=== PATIENT | female | born 1980 | race African-American/Black ===

== ENCOUNTER 2019-07-01 19:23 | Inpatient (IN) | payer MEDICAID ==
[~2019-07-01] VITALS: Ht 152.4 cm; Wt 117.1 kg
[2019-07-01] MEDS ORDERED: CELEXA40 MG PO (22:34)
[2019-07-01] MEDS ORDERED: XANAX1 MG PO (22:34)
[2019-07-01] MEDS ORDERED: NEURONTIN800 MG PO (22:35)
[2019-07-01] MEDS ORDERED: HYDROCODONE-A1 UDTA2 PO (22:36)
[2019-07-01] MEDS ORDERED: LOPRESSOR25 MG PO (22:36)
[2019-07-01] MEDS ORDERED: TEMAZEPAM30 MG PO (22:40)
[2019-07-01] MEDS ORDERED: CYCLOBENZAPRINE5 MG PO (22:42)
[2019-07-01] MEDS ORDERED: PHENERGAN6.25 MG/5 PO (22:45)
[2019-07-01 23:58] VITALS: BP 152/91
[2019-07-02 00:08] VITALS: BP 152/91; Ht 152.4 cm; Wt 117.1 kg
--- NOTE | 2019-07-02 01:08 | NUR ---
I have reviewed this patient and I concur with the Shift Assessment completed by the Licensed Practical Nurse today this shift.
--- NOTE | 2019-07-02 02:30 | NUR ---
ADMISSION ASSESSMENT COMPLETED. PT RESTING IN BED. NO DISTRESS. SR PER TELEM
[2019-07-02 05:34] LABS: BASOPHILS 0.1 % (0-2); EOSINOPHILS 0.9 % (0-7); HEMATOCRIT 35.5 % (36.0-48.0); HEMOGLOBIN 10.8 g/dL (12-16); IMMATURE GRANULOCYTES 0.5 % (0-5); LYMPHOCYTES 28.1 % (15-50); MCH 24.4 pg (26.0-34.0); MCHC 30.4 g/dL (31.0-37.0); MCV 80.3 fL (80.0-100.0); MEAN PLATELET VOLUME 9.1 fL (7.4-10.4); MONOCYTES 7.5 % (2-11); NEUTROPHILS 62.9 % (40-80); PLATELET COUNT 375 10x3/uL (130-400); RBC 4.42 10x6/uL (4.00-5.40); RDW 17.7 % (11.5-14.5); WBC 17.5 10x3/uL (4.8-10.8)
[2019-07-02 06:00] LABS: ANION GAP 9.7 mmol/L (8-16); CALCIUM 8.8 mg/dL (8.5-10.1); CARBON DIOXIDE 31.1 mmol/L (21.0-32.0); CREATININE - SERUM 0.9 mg/dL (0.6-1.3); MAGNESIUM - SERUM 1.8 mg/dL (1.8-2.4); PHOSPHOROUS 2.9 mg/dL (2.5-4.9); POTASSIUM - SERUM 3.8 mmol/L (3.5-5.1)
[2019-07-02 08:00] VITALS: BP 151/88
[2019-07-02 11:29] LABS: % SATURATION 7 % (15-55); IRON 30 ug/dl (35-150); TOTAL IRON BIND CAPACITY 398 ug/dl (260-445); UNSAT IRON BIND CAPACITY 368 ug/dl (150-375)
[2019-07-02 12:05] LABS: FERRITIN 46 ng/mL (3-244); PRO BNP 33 pg/mL (0-125)
[2019-07-02 14:40] LABS: APPEARANCE CLEAR (CLEAR); BILIRUBIN NEGATIVE (NEGATIVE); COLOR YELLOW (YELLOW); GLUCOSE NEGATIVE (NEGATIVE); KETONE NEGATIVE (NEGATIVE); NITRITE NEGATIVE (NEGATIVE); PROTEIN TRACE mg/dL (NEGATIVE); UROBILINOGEN NORMAL (NORMAL)
--- NOTE | 2019-07-02 14:40 | NUR ---
PATIENT IS AWAKE AND SITTING UP IN BED WITH FAMILY IN THE ROOM. SHE DENIES ANY NEEDS AT THIS TIME.
[2019-07-02 14:42] LABS: BACTERIA FEW /hpf (NEGATIVE); EPITHELIAL CELLS 0-5 /hpf (0-5); RED CELLS - URINE OCC /hpf (0-5)
[2019-07-02 14:44] LABS: YEAST >1+ /hpf (NONE SEEN)
[2019-07-02 14:51] LABS: UDS - AMPHET NEGATIVE QUAL (NEGATIVE); UDS - BARB NEGATIVE QUAL (NEGATIVE); UDS - BENZO POSITIVE QUAL (NEGATIVE); UDS - COCAINE NEGATIVE QUAL (NEGATIVE); UDS - OPIATE POSITIVE QUAL (NEGATIVE); UDS - PCP NEGATIVE QUAL (NEGATIVE); UDS - THC NEGATIVE QUAL (NEGATIVE)
[2019-07-02 16:00] VITALS: BP 148/86
[2019-07-02 20:35] VITALS: BP 124/80
--- NOTE | 2019-07-02 23:22 | NUR ---
ASSESSMENT COMPLETED AT 191 HRS. PT RESTING WITH EYES CLOSED. RESP EVEN AND REGULAR. ATTEMPTED TO HANG IVAB AT 1935 HRS. IV OCCLUDED. IV DC'D WITH CATHETER INTACT. ASSESSMENT COMPLETED AT 1999 HRS. VSS. ALERT AND ORIENTED TO PERSON, PLACE AND TIME. STERN. LUNGS DIMINISHED IN BASES BILAT. PT UP AD HITESH. NEW IV STARTED TO RAC #22 WITH ATTEMPS X3. PT TOLERATED ACTIVITY WELL. MAXIPIME 2GR IVPB INITIATED AT 2037 HRS. PM MEDS GIVEN. PT CURRENTLY RESTING WITH EYES CLOSED. RESP EVEN AND REGULAR. SR UP X2,CALL LIGHT WITHIN REACH.
[2019-07-02 23:52] VITALS: BP 131/79
--- NOTE | 2019-07-03 00:36 | NUR ---
PT AWAKE; DENIES ANY DISCOMFORT. CALL LIGHT WITHIN REACH.
--- NOTE | 2019-07-03 02:25 | NUR ---
PT RESTING WITH EYES CLOSED. RESP EVEN AND REGULAR. SR UP X2,CALL LIGHT WITHIN REACH.
[2019-07-03 04:02] VITALS: BP 135/79
--- NOTE | 2019-07-03 04:20 | NUR ---
PT AWAKE; DENIES ANY DISCOMFORT. CALL LIGHT WITHN REACH.
[2019-07-03 04:56] LABS: BASOPHILS 0.1 % (0-2); EOSINOPHILS 0.3 % (0-7); HEMATOCRIT 38.1 % (36.0-48.0); HEMOGLOBIN 11.6 g/dL (12-16); IMMATURE GRANULOCYTES 0.4 % (0-5); LYMPHOCYTES 17.5 % (15-50); MCH 24.6 pg (26.0-34.0); MCHC 30.4 g/dL (31.0-37.0); MCV 80.9 fL (80.0-100.0); MEAN PLATELET VOLUME 9.2 fL (7.4-10.4); MONOCYTES 2.5 % (2-11); NEUTROPHILS 79.2 % (40-80); PLATELET COUNT 387 10x3/uL (130-400); RBC 4.71 10x6/uL (4.00-5.40); RDW 17.8 % (11.5-14.5); WBC 13.6 10x3/uL (4.8-10.8)
[2019-07-03 05:09] LABS: CALC OSMOLALITY 276 mosm/kg (275-300); CALCIUM 8.8 mg/dL (8.5-10.1); CARBON DIOXIDE 28.8 mmol/L (21.0-32.0); CHLORIDE - SERUM 102 mmol/L (98-107); CREATININE - SERUM 0.8 mg/dL (0.6-1.3); GLUCOSE 126 mg/dL (74-106); MAGNESIUM - SERUM 1.7 mg/dL (1.8-2.4); PHOSPHOROUS 3.5 mg/dL (2.5-4.9); SODIUM 137 mmol/L (136-145); UREA NITROGEN 16 mg/dL (7-18); eGFR NON AFRICAN AMERICAN 84 mL/min (90-120)
[2019-07-03 05:12] LABS: POTASSIUM - SERUM 4.7 mmol/L (3.5-5.1)
--- NOTE | 2019-07-03 07:17 | NUR ---
VSS THROUGHOUT NIGHT. PT RESTED WELL DURING SHIFT. NEEDS MET; WILL CONTINUE TO MONITOR.
[2019-07-03 08:47] VITALS: BP 141/89
[2019-07-03 13:04] VITALS: BP 140/85
--- NOTE | 2019-07-03 19:35 | NUR ---
INITIAL ROUNDS COMPLETED. PT DENIES ANY DISCOMFORT. CALL LIGHT WITHIN REACH.
[2019-07-03 20:32] VITALS: BP 128/76
--- NOTE | 2019-07-03 22:39 | NUR ---
ASSESSMENT COMPLETED AT 1920 HRS. PT DENIED ANY DISCOMFORT. VSS. ALERT AND ORIENTED TO PERSON, PLACE AND TIME. STERN. IV TO UPPER R ARM SL. LUNGS DIMINISHED IN BASES BILAT. PM MEDS GIVEN. PT CURRENTLY RESTING WITH EYES CLOSED. RESP EVEN AND REGULAR. SR UP X2, CALL LIGHT WITHIN REACH.
[2019-07-03 23:51] VITALS: BP 142/79
--- NOTE | 2019-07-04 00:06 | NUR ---
PT AWAKE; DENIES ANY DISCOMFORT. CALL LIGHT WITHIN REACH.
--- NOTE | 2019-07-04 02:10 | NUR ---
PT RESTING WITH EYES CLOSED. RESP EVEN AND REGULAR. SR UP X2, CALL LIGHT WITHIN REACH.
--- NOTE | 2019-07-04 04:21 | NUR ---
PT RESTING WITH EYES CLOSED. RESP EVEN AND REGULAR. SR UP X1, CALL LIGHT WITHIN REACH.
[2019-07-04 04:30] VITALS: BP 159/87
[2019-07-04 06:11] LABS: HEMOGLOBIN 11.3 g/dL (12-16); MCH 24.2 pg (26.0-34.0); MCHC 30.5 g/dL (31.0-37.0); MCV 79.4 fL (80.0-100.0); MEAN PLATELET VOLUME 9.3 fL (7.4-10.4); PLATELET COUNT 410 10x3/uL (130-400); RBC 4.66 10x6/uL (4.00-5.40); RDW 17.7 % (11.5-14.5); WBC 23.7 10x3/uL (4.8-10.8)
[2019-07-04 06:28] LABS: EOSINOPHILS 1 % (0-7); LYMPHOCYTES 12 % (15-50); MONOCYTES 7 % (2-11); NEUTROPHILS 80 % (40-80); PLATELET ESTIMATE INCREASED
[2019-07-04 06:47] LABS: CALCIUM 8.5 mg/dL (8.5-10.1); CARBON DIOXIDE 26.5 mmol/L (21.0-32.0); CHLORIDE - SERUM 101 mmol/L (98-107); CREATININE - SERUM 0.8 mg/dL (0.6-1.3); MAGNESIUM - SERUM 1.9 mg/dL (1.8-2.4); POTASSIUM - SERUM 4.4 mmol/L (3.5-5.1); SODIUM 139 mmol/L (136-145); eGFR NON AFRICAN AMERICAN 84 mL/min (90-120)
--- NOTE | 2019-07-04 06:48 | NUR ---
VSS THROUGHOUT NIGHT. PT STATED XANAX AND NORCO HELPED HER SLEEP. NEEDS MET; WILL CONTINUE TO MONITOR.
[2019-07-04 06:51] LABS: CALC OSMOLALITY 287 mosm/kg (275-300); GLUCOSE 216 mg/dL (74-106); UREA NITROGEN 22 mg/dL (7-18)
[2019-07-04 09:13] VITALS: BP 152/80
--- NOTE | 2019-07-04 09:48 | NUR ---
PATIENT PIV IS NO LONGING WORKING. IT IS PAINFUL AND APPEARS TO HAVE DISLODGED. IT IS IN HER RIGHT, INNER, UPPER ARM. SHE HAS HAD IV'S IN HER HANDS, AND DOES NOT KEEP IV'S. SHE JUST HAD THIS IV PLACED YESTERDAY. REMOVING NOW WITH CATHETER INTACT. WILL LOOK FOR ANOTHER SITE. DR MORSE SAID THAT WE SHOULD GET A MIDLINE PLACED. WILL PUT IN AN ORDER FOR VASCULAR ACCESS NURSE, IF HE HAS NOT DONE SO ALREADY.
--- NOTE | 2019-07-04 10:37 | NUR ---
UNABLE TO START IV, ATTEMPTED, AND FAILED IN RIGHT UPPER ARM.
--- NOTE | 2019-07-04 12:07 | NUR ---
CALLED VASCULAR ACCESS NURSE, SHE WILL COME DO THE MIDLINE SOON SHE IS DONE WITH HER CURRENT PATIENT.
[2019-07-04 12:17] VITALS: BP 143/77
--- NOTE | 2019-07-04 12:32 | NUR ---
NUTRITION CONSULT PROVIDED PT WITH CONSISTENT CARB DIET INFORMATION. ALSO PROVIDED PLATE METHOD GUIDELINES. ENCOURAGED PT TO LIMIT CARBS TO ~ 3 CHOICES PER MEAL. PT VOICED UNDERSTANDING. RD FOLLOWING
--- NOTE | 2019-07-04 13:45 | NUR ---
MIDLINE PLACED IN LEFT UPPER ARM BY VASCULAR ACCESS NURSE. PATIENT TOLERATED.
[2019-07-04 17:24] VITALS: BP 128/66
--- NOTE | 2019-07-04 17:27 | MORECARE ---
CASE MANAGEMENT DISCHARGE SUMMARY PATIENT: JAYSON FLORES UNIT: [id number] ADM DATE: 07/01/19 AGE: 38 : 78 SEX: F ROOM/BED: D.7070 AUTHOR: MARINA,DOC PHYSICIAN: REFERRING PHYSICIAN: LESLY SHELBY MD DATE OF SERVICE: 07/04/19 Discharge Plan Patient Name: JAYSON FLORES Facility: [facility]:[place] : 1980 Planned Disposition: Home Anticipated Discharge Date: Discharge Date: Expected LOS: Initial Reviewer: [id number] Initial Review Date: 07/04/2019 Generated: 07/04/19 6:27 pm Comments DCP- Discharge Planning Updated by [id number]: Ynes Bond on 07/04/19 4:[address] Patient Name: JAYSON LFORES Admission Status: Elective Accout number: [id number] Admission Date: 07-01-2019 : 1980 Admission Diagnosis: Attending: LESLY SHELBY Current LOS: 3 Anticipated DC Date: Planned Disposition: Home Primary Insurance: MEDICAID [place] Discharge Planning Comments: CM MET WITH PATIENT AFTER OBTAINING VERBAL CONSENT. STATES PLANS TO DISCHARGE TO HOME. DISCUSSED NEED FOR HH, REHAB OR EQUIPMENT, PATIENT STATES NO NEEDS. MAY NEED WALK TEST, EDMUND SIGNED FOR [facility]. CM WILL FOLLOW AND ASSIST NEEDED. Trimmer Helper: Ynes Bond DCPIA - Discharge Planning Initial Assessment Updated by [email or web address]: Ynes Bond on 07/04/19 5:16 pm * Is the patient Alert and Oriented? Yes * PCP DAYDAY * Pharmacy [facility] * Preadmission Environment Home with Family * ADLs Independent * Equipment Nebulizer * List name and contact numbers for known caregivers / representatives who currently or will assist patient after discharge: LAMBERTOIKA, DAUGHTER, * Additional services required to return to the preadmission environment? No * Can the patient safely return to the preadmission environment? Yes * Has this patient been hospitalized within the prior 30 days at any hospital? No Coverage Notice Reviewer: [email or web address] Juan Manuel Bond Notice Issued Date-Time: 07/04/2019 17:17 Notice Type: Patient Choice Letter Notice Delivered To: Patient Relationship to Patient: Php Lamp Developer Name: Delivery Method: HAND - Hand Delivered Eleni Days: Prior Verbal Notification: Recipient Understood Notice: Yes Recipient Signature: Yes Med Rec Note Co-signed by Attending: Coverage Notice Comment: [facility] Patient Name: JAYSON FLORES Page [phone] at 1727 All edits/amendments must be made on the electronic document DICTATION DATE: 07/04/191726 DRIER FEEDER: YANET 07/04/191726 RPT#: [id number] DC DATE: STATUS: ADM IN [facility] [address] [place] [address] END OF REPORT
--- NOTE | 2019-07-04 19:30 | NUR ---
PT A/OX4, LUNGS CLEAR, LEFT MIDLINE INTACT WITH ABX INFUSING, PSORIASIS NOTED TO BILAT ARMS, WATCHING TV WITH NO C/O
[2019-07-04 20:00] VITALS: BP 138/96
[2019-07-05] VITALS: BP 135/83
[2019-07-05 04:00] VITALS: BP 122/80
[2019-07-05 05:48] LABS: BASOPHILS 0.2 % (0-2); EOSINOPHILS 2.1 % (0-7); HEMATOCRIT 38.8 % (36.0-48.0); IMMATURE GRANULOCYTES 0.4 % (0-5); LYMPHOCYTES 22.8 % (15-50); MCH 24.5 pg (26.0-34.0); MCHC 30.9 g/dL (31.0-37.0); MCV 79.3 fL (80.0-100.0); MONOCYTES 6.5 % (2-11); PLATELET COUNT 346 10x3/uL (130-400); RBC 4.89 10x6/uL (4.00-5.40); WBC 17.8 10x3/uL (4.8-10.8)
[2019-07-05 06:06] LABS: ANION GAP 11.5 mmol/L (8-16); CALCIUM 8.6 mg/dL (8.5-10.1); CARBON DIOXIDE 28.8 mmol/L (21.0-32.0); MAGNESIUM - SERUM 1.8 mg/dL (1.8-2.4); POTASSIUM - SERUM 4.3 mmol/L (3.5-5.1)
--- NOTE | 2019-07-05 08:28 | NUR ---
ALERT AND ORIENTED. DENIES ANY NEEDS. ON ROOM AIR. MID LINE TO LEFT UPPER ARM. UP AB HITESH. PSORISES TO BITH FOREARM. SR UP WITH CALL LIGHT IN REACH WILL MONITOR
[2019-07-05 09:29] VITALS: BP 138/83
[2019-07-05 12:13] VITALS: BP 137/72
--- NOTE | 2019-07-05 15:52 | NUR ---
I have reviewed this patient and I concur with the Shift Assessment completed by the Licensed Practical Nurse today this shift.
[2019-07-05 16:46] VITALS: BP 141/81
--- NOTE | 2019-07-05 18:16 | NUR ---
UP IN HALLWAY WALKING. GAIT STEADY. DENIES ANY NEEDS. CALL LIGHT IN REACH WITH SR UP. WILL MONITOR
--- NOTE | 2019-07-05 19:32 | NUR ---
BEDSIDE REPORT RECEIVED FROM DAY SHIFT, PT CARE ASSUMED. INTRODUCED SELF AND WROTE NAME ON BOARD. PT SITTING UP IN BED WATCHING TV, AAOX4. DENIES ANY NEEDS AT THIS TIME. BED IN LOWEST POSITION, SR X2, CALL LIGHT WITHIN REACH. WILL CONTINUE TO MONITOR.
[2019-07-05 20:35] VITALS: BP 133/74
--- NOTE | 2019-07-05 21:11 | NUR ---
NIGHT TIME MEDS GIVEN, PER ORDER. PT REPORTS BACK PAIN OF 7, ON A SCALE OF 0-10. REQUESTED AND PROVIDED TOWELS AND WASHCLOTHS TO CLEAN SELF IN BED. DENIES ANY OTHER NEEDS AT THIS TIME, BED IN LOWEST POSITION, SR X2, CALL LIGHT WITHIN REACH. WILL CONTINUE TO MONITOR.
[2019-07-06] VITALS: BP 119/74
[2019-07-06 04:30] VITALS: BP 99/52
[2019-07-06 06:08] LABS: HEMATOCRIT 39.6 % (36.0-48.0); HEMOGLOBIN 12.5 g/dL (12-16); MCHC 31.6 g/dL (31.0-37.0); MEAN PLATELET VOLUME 9.1 fL (7.4-10.4); PLATELET COUNT 375 10x3/uL (130-400); RBC 5.01 10x6/uL (4.00-5.40); RDW 17.9 % (11.5-14.5); WBC 20.3 10x3/uL (4.8-10.8)
[2019-07-06 06:09] LABS: IGG SUBCLASS 1 844 mg/dL (248-810); IGG SUBCLASS 2 347 mg/dL (130-555); IGG SUBCLASS 3 100 mg/dL (15-102); IGG SUBCLASS 4 65 mg/dL (2-96); IGGS - IGG SERUM 1392 mg/dL (700-1600)
[2019-07-06 06:20] LABS: ANION GAP 11.5 mmol/L (8-16); CALCIUM 9.1 mg/dL (8.5-10.1); CARBON DIOXIDE 29.2 mmol/L (21.0-32.0); CREATININE - SERUM 0.9 mg/dL (0.6-1.3); MAGNESIUM - SERUM 2.1 mg/dL (1.8-2.4); POTASSIUM - SERUM 4.7 mmol/L (3.5-5.1)
[2019-07-06 07:39] LABS: EOSINOPHILS 2 % (0-7); LYMPHOCYTES 20 % (15-50); MONOCYTES 4 % (2-11); NEUTROPHILS 73 % (40-80); PLATELET ESTIMATE NORMAL
--- NOTE | 2019-07-06 07:50 | NUR ---
ALERT AND ORIENTED. LEFT UPPER ARM MIDLINE SWITH NS AT 20. UP AB HITESH. DENIES ANY NEEDS. WILL MONITOR
[2019-07-06 09:13] VITALS: BP 125/75
[2019-07-06 13:36] VITALS: BP 122/57
--- NOTE | 2019-07-06 16:52 | NUR ---
I have reviewed this patient and I concur with the Shift Assessment completed by the Licensed Practical Nurse today this shift.
[2019-07-06 18:12] VITALS: BP 131/72
--- NOTE | 2019-07-06 19:15 | NUR ---
EVENING ROUNDS COMPLETED. PATIENT ALERT AND ORIENTED. CALM AND COOPERATIVE WITH CARE AND ASSESSMENT. DENIES HAVING ANY NEEDS AT THIS TIME. BED IN LOWEST POSITION. SIDE RAILS UP. CALL LIGHT IN REACH. WILL CONTINUE TO MONITOR.
[2019-07-06 20:00] VITALS: BP 152/81
[2019-07-07] VITALS: BP 110/66
[2019-07-07 04:00] VITALS: BP 126/81
--- NOTE | 2019-07-07 04:29 | NUR ---
PATIENT RESTING IN BED WITH EYES CLOSED. NO SIGNS OF DISTRESS. BED IN LOWEST POSITION. SIDE RAILS UP. CALL LIGHT IN REACH. WILL CONTINUE TO MONITOR.
[2019-07-07 06:13] LABS: BASOPHILS 0.1 % (0-2); EOSINOPHILS 1.6 % (0-7); HEMATOCRIT 38.3 % (36.0-48.0); IMMATURE GRANULOCYTES 0.4 % (0-5); LYMPHOCYTES 15.2 % (15-50); MCH 24.9 pg (26.0-34.0); MCHC 31.3 g/dL (31.0-37.0); MCV 79.6 fL (80.0-100.0); MEAN PLATELET VOLUME 9.4 fL (7.4-10.4); MONOCYTES 6.2 % (2-11); NEUTROPHILS 76.5 % (40-80); PLATELET COUNT 366 10x3/uL (130-400); RBC 4.81 10x6/uL (4.00-5.40); RDW 18.1 % (11.5-14.5); WBC 19.9 10x3/uL (4.8-10.8)
[2019-07-07 06:57] LABS: CALCIUM 9.4 mg/dL (8.5-10.1); CARBON DIOXIDE 27.6 mmol/L (21.0-32.0); CREATININE - SERUM 0.9 mg/dL (0.6-1.3); POTASSIUM - SERUM 4.6 mmol/L (3.5-5.1)
--- NOTE | 2019-07-07 08:04 | MORECARE ---
CASE MANAGEMENT DISCHARGE SUMMARY PATIENT: JAYSON FLORES UNIT: [id number] ADM DATE: 07/01/19 AGE: 38 : 78 SEX: F ROOM/BED: D.3538 AUTHOR: MARINA,DOC PHYSICIAN: REFERRING PHYSICIAN: LESLY SHELBY MD DATE OF SERVICE: 07/07/19 Discharge Plan Patient Name: JAYSON FLORES Facility: [facility]:[place] : 1980 Planned Disposition: Home Anticipated Discharge Date: Discharge Date: Expected LOS: Initial Reviewer: [id number] Initial Review Date: 07/04/2019 Generated: 07/07/19 9:03 am Comments DCP- Discharge Planning Updated by [id number]: Ynes Bond on 07/04/19 4:[address] Patient Name: JAYSON FLORES Admission Status: Elective Accout number: [id number] Admission Date: 07-01-2019 : 1980 Admission Diagnosis: Attending: LESLY SHELBY Current LOS: 3 Anticipated DC Date: Planned Disposition: Home Primary Insurance: MEDICAID [place] Discharge Planning Comments: CM MET WITH PATIENT AFTER OBTAINING VERBAL CONSENT. STATES PLANS TO DISCHARGE TO HOME. DISCUSSED NEED FOR HH, REHAB OR EQUIPMENT, PATIENT STATES NO NEEDS. MAY NEED WALK TEST, EDM[facility]D SIGNED FOR [facility]. CM WILL FOLLOW AND ASSIST NEEDED. Home Security Alarm Installer: Ynes Bond DCPIA - Discharge Planning Initial Assessment Updated by [id number]: Ynes Bond on 07/04/19 5:16 pm * Is the patient Alert and Oriented? Yes * PCP DAYDAY * Pharmacy [facility] * Preadmission Environment Home with Family * ADLs Independent * Equipment Nebulizer * List name and contact numbers for known caregivers / representatives who currently or will assist patient after discharge: LAMBERTOIKA, DAUGHTER, * Additional services required to return to the preadmission environment? No * Can the patient safely return to the preadmission environment? Yes * Has this patient been hospitalized within the prior 30 days at any hospital? No Coverage Notice Reviewer: [id number] Juan Manuel Bond Notice Issued Date-Time: 07/04/2019 17:17 Notice Type: Patient Choice Letter Notice Delivered To: Patient Relationship to Patient: Hand Grinder Name: Delivery Method: HAND - Hand Delivered Eleni Days: Prior Verbal Notification: Recipient Understood Notice: Yes Recipient Signature: Yes Med Rec Note Co-signed by Attending: Coverage Notice Comment: [facility] Last DP export: 07/04/19 4:27 Patient Name: JAYSON FLORES Page [phone] at 0804 All edits/amendments must be made on the electronic document DICTATION DATE: 07/07/19802 FILM SOUND COORDINATOR: YANET 07/07/19802 RPT#: [id number] DC DATE: STATUS: ADM IN [facility] [address] [place] [address] END OF REPORT
[2019-07-07 10:44] VITALS: BP 127/79
[2019-07-07] MEDS ORDERED: DIFLUCAN100 MG PO (12:14)
[2019-07-07] MEDS ORDERED: SINGULAIR10 MG PO (12:16)
[2019-07-07] MEDS ORDERED: GLUCOPHAGE500 MG PO (12:16)
[2019-07-07] MEDS ORDERED: PREDNISONE20 MG PO (12:17)
[2019-07-07] MEDS ORDERED: SULFAMETHOXAZOL1 TA2 PO (12:18)
[2019-07-07 13:42] VITALS: BP 118/83
[2019-07-07] MEDS ORDERED: ALBUTEROL SULF8.5 GM INH (16:22)
[2019-07-07] MEDS ORDERED: MUCINEX600 MG PO (16:22)
[2019-07-07] MEDS ORDERED: FLOVENT HFA 11012 GM INH (16:22)
[2019-07-07] MEDS ORDERED: IPRAT-ALBUT 0.5-3 ML UPD (16:22)
[2019-07-07 18:20] VITALS: BP 143/75
--- NOTE | 2019-07-07 19:10 | NUR ---
BEDSIDE REPORT RECEIVED FROM DAY SHIFT, PT CARE ASSUMED. WROTE NAME ON BOARD. PT BACK TO BED FROM BATHROOM, AAOX4. DENIES ANY NEEDS AT THIS TIME. BED IN LOWEST POSITION, SR X2, CALL LIGHT WITHIN REACH. WILL CONTINUE TO MONITOR.
--- NOTE | 2019-07-07 20:21 | NUR ---
NIGHT TIME MEDS ADMINSITERED, PER ORDER. LEFT UPPER ARM MIDLINE REMOVE, CATHETER TIP INTACT, PT TOLERATED WELL. FAMILY AT BEDSIDE TO HIGH WORKER PT FOR DISCHARGE. PT DENIES ANY OTHER NEEDS AT THIS TIME.
--- NOTE | 2019-07-07 20:33 | NUR ---
ASSISTED PT TO PERSONAL VEHICLE VIA WHEELCHAIR.
[2019-07-08 05:09] LABS: ANGIOTENSIN CONVERTING ENZYME 67 U/L (14-82); IMMUNOGLOBULIN A 568 mg/dL (87-352); IMMUNOGLOBULIN E 1898 IU/mL (6-495)
--- NOTE | 2019-07-11 09:24 | MORECARE ---
CASE MANAGEMENT DISCHARGE SUMMARY PATIENT: JAYSON FLORES UNIT: [id number] ADM DATE: 07/01/19 AGE: 38 : 76 SEX: F ROOM/BED: D.8444 AUTHOR: MARINADOC PHYSICIAN: REFERRING PHYSICIAN: LESLY SHELBY MD DATE OF SERVICE: 07/11/19 Discharge Plan Patient Name: JAYSON FLORES Facility: [facility]:[place] : 1980 Planned Disposition: Home Anticipated Discharge Date: 07/07/19 Discharge Date: 07/07/2019 Expected LOS: 6 Initial Reviewer: [email or web address] Initial Review Date: 07/04/2019 Generated: 07/11/19 10:24 am DCP- Discharge Planning Updated by [id number]: Ynes Bond on 07/04/19 4:[address] Patient Name: JAYSON FLORES Admission Status: Elective Accout number: [id number] Admission Date: 07-01-2019 : 1980 Admission Diagnosis: Attending: LESLY HSELBY Current LOS: 3 Anticipated DC Date: Planned Disposition: Home Primary Insurance: MEDICAID [place] Discharge Planning Comments: CM MET WITH PATIENT AFTER OBTAINING VERBAL CONSENT. STATES PLANS TO DISCHARGE TO HOME. DISCUSSED NEED FOR HH, REHAB OR EQUIPMENT, PATIENT STATES NO NEEDS. MAY NEED WALK TEST, EDMUND SIGNED FOR [facility]. CM WILL FOLLOW AND ASSIST NEEDED. Plan Examiner: Ynes Bond DCPIA - Discharge Planning Initial Assessment Updated by [id number]: Ynes Bond on 07/04/19 5:16 pm * Is the patient Alert and Oriented? Yes * PCP DAYDAY * Pharmacy [facility] * Preadmission Environment Home with Family * ADLs Independent * Equipment Nebulizer * List name and contact numbers for known caregivers / representatives who currently or will assist patient after discharge: ROSHAN, DAUGHTER, * Additional services required to return to the preadmission environment? No * Can the patient safely return to the preadmission environment? Yes * Has this patient been hospitalized within the prior 30 days at any hospital? No Coverage Notice Reviewer: [id number] - Ynes Bond Notice Issued Date-Time: 07/04/2019 17:17 Notice Type: Patient Choice Letter Notice Delivered To: Patient Relationship to Patient: Elevator Starter Name: Delivery Method: HAND - Hand Delivered Eleni Days: Prior Verbal Notification: Recipient Understood Notice: Yes Recipient Signature: Yes Med Rec Note Co-signed by Attending: Coverage Notice Comment: [facility] Last DP export: 07/07/19 7:04 Patient Name: JAYSON FLORES Page [phone] at 0924 All edits/amendments must be made on the electronic document DICTATION DATE: 07/11/19923 BUSINESS INTELLIGENCE ARCHITECT: YANET 07/11/19923 RPT#: [id number] DC DATE:07/07/19 STATUS: DIS IN [facility] [address] [place] [address] END OF REPORT
== END 2019-07-07 20:35 | disposition home or self-care (01) | DRG 196 ==
LOC: D.M2 19:23
PROVIDERS: Emergency Medicine; Internal Medicine Pulmonary Disease; ADMIT Internal Medicine Nephrology; ATTEND Internal Medicine Nephrology
DX: D86.0 Sarcoidosis of lung (principal); J18.9 Pneumonia, unspecified organism; B59 Pneumocystosis; Z68.45 Body mass index [BMI] 70 or greater, adult; J47.0 Bronchiectasis with acute lower respiratory infection; J98.11 Atelectasis; D64.9 Anemia, unspecified; I10 Essential (primary) hypertension; L40.9 Psoriasis, unspecified; M54.5 Low back pain; E66.01 Morbid (severe) obesity due to excess calories; D50.9 Iron deficiency anemia, unspecified; J30.9 Allergic rhinitis, unspecified

== ENCOUNTER 2019-07-23 00:23 | Observation (INO) | payer MEDICAID ==
[~2019-07-23] VITALS: Ht 160 cm; Wt 119.2 kg
[~2019-07-23 00:23] MED LIST: ALBUTEROL SULF8.5 GM INH; CELEXA40 MG PO; CYCLOBENZAPRINE5 MG PO; DIFLUCAN100 MG PO; FLOVENT HFA 11012 GM INH; GLUCOPHAGE500 MG PO; HYDROCODONE-A1 UDTA2 PO; IPRAT-ALBUT 0.5-3 ML UPD; LOPRESSOR25 MG PO; MUCINEX600 MG PO; NEURONTIN800 MG PO; PHENERGAN6.25 MG/5 PO; PREDNISONE20 MG PO; SINGULAIR10 MG PO; SULFAMETHOXAZOL1 TA2 PO; TEMAZEPAM30 MG PO; XANAX1 MG PO
[2019-07-23] MEDS ORDERED: SOMA350 MG PO (00:34)
--- NOTE | 2019-07-23 00:42 | NUR ---
AUDIO/VISUAL OPERATOR CALLED FOR BEHAVIORAL HEALTH SCREENING AT THIS TIME. PT ANSWERED "YES" TO LIFETIME QUESTION.
--- NOTE | 2019-07-23 00:50 | NUR ---
PATIENT IN ER 10 FOR CHEST PAIN, SHE IS NOT SUICIDIAL, SHE WAS 8 YEARS AGO AND DID TAKE PILLS TO END HER LIFE, THOSE ISSUES HAVE BEEN RESOLVED. SHE CAN LIST REASONS FOR LIVING. SHE IS NOT SUICIDIAL. SUICIDAL PREVENTION SHEET GIVEN TO PATIENT.
--- NOTE | 2019-07-23 00:51 | NUR ---
REPORT GIVEN, WAITING FOR LAB RESULTS, WILL GO AHEAD AND TRANSPORT TO ROOM PER MD.
--- NOTE | 2019-07-23 01:10 | NUR ---
PT ARRIVED VIA STRETCHER. NO DISTRESS NOTED.
[2019-07-23] MEDS ORDERED: VITAMIN D31000 UNIT PO (01:31)
[2019-07-23 01:38] VITALS: BP 118/74; BMI 46.5
--- NOTE | 2019-07-23 01:58 | NUR ---
ADMISSION ASSESSMENT, HISTORY AND HOME MED LIST COMPLETED. IV TO UPPER L ARM SL. IV PATENT. VSS. SR PER CM HR 98. O2 2LNC. LUNGS DIMINISHED IN BASES BILAT. STERN. PALPABLE PERIPHERAL PULSES. SCALY PATCHES NOTED ON SKIN. ALERT AND ORIENTED TO PERSON, PLACE AND TIME. ZOFRAN 4MG, MORPHINE 2MG SIVP GIVEN FOR C/O NAUSEA AND CP. NO SLIP SOCKS PLACED ON FEET. SR UP X1, CALL LIGHT WITHIN REACH.
--- NOTE | 2019-07-23 02:12 | NUR ---
PSYCH ASSESSMENT DONE IN ER.
[2019-07-23 04:00] VITALS: BP 145/90
--- NOTE | 2019-07-23 04:27 | NUR ---
PT RESTING WITH EYES CLOSED. RESP EVEN AND REGULAR. SR UP X1, CALL LIGHT WITHIN REACH.
--- NOTE | 2019-07-23 05:44 | NUR ---
PT RESTING WITH EYES CLOSED. RESP EVEN AND REGULAR. SR UP X1, CALL LIGHT WITHIN REACH.
--- NOTE | 2019-07-23 07:00 | NUR ---
RECEIVED BEDSIDE SHIFT REPORT. ASSUMED CARE OF PATIENT. ALLERGY BAND APPLIED TO PATIENT. PATIENT RESTING IN BED, NO DISTRESS. WAS ABLE TO GET A LITTLE SLEEP THIS AM. CALL LIGHT WITHIN REACH. NO DISTRESS.
[2019-07-23] MEDS ORDERED: BUTALB-APAP-CA1 EACH PO (08:03)
[2019-07-23 08:49] VITALS: Ht 160 cm; Wt 119.2 kg
[2019-07-23 09:04] VITALS: BP 148/90
--- NOTE | 2019-07-23 10:00 | NUR ---
MEDICATED FOR PAIN AT THIS TIME.
--- NOTE | 2019-07-23 12:17 | NUR ---
MEDICATED FOR HEADACHE AT THIS TIME WITH FIORICET. PATIENT TRYING TO EAT LUNCH BUT HEAD IS HURTING. CALL LIGHT WITHIN REACH.
--- NOTE | 2019-07-23 12:30 | NUR ---
PATIENT COMPLAINING OF ARM PAIN AFTER ADMINISTRATION OF FIORICET. CALLED PHARMACY AND SPOKE WITH JOSE, PHARMACIST, AND PER JOSE THE MORPHINE CAN BE ADMINISTERED NOW INSTEAD OF MAKING HER WAIT AN HOUR. MEDICATED WITH MORPHINE FOR PAIN AT THIS TIME.
[2019-07-23] MEDS ORDERED: LOPRESSOR25 MG PO (13:14)
[2019-07-23] MEDS ORDERED: IBUPROFEN800 MG PO (13:15)
[2019-07-23 13:23] LABS: BASOPHILS 0.2 % (0-2); EOSINOPHILS 1.7 % (0-7); HEMOGLOBIN 10.7 g/dL (12-16); IMMATURE GRANULOCYTES 0.3 % (0-5); LYMPHOCYTES 17.1 % (15-50); MCH 24.9 pg (26.0-34.0); MCHC 29.7 g/dL (31.0-37.0); MCV 83.9 fL (80.0-100.0); MONOCYTES 5.5 % (2-11); NEUTROPHILS 75.2 % (40-80); PLATELET COUNT 328 10x3/uL (130-400); RBC 4.29 10x6/uL (4.00-5.40); RDW 18.7 % (11.5-14.5); WBC 13.7 10x3/uL (4.8-10.8)
[2019-07-23 13:36] LABS: ALBUMIN 2.6 g/dL (3.4-5.0); ANION GAP 10.2 mmol/L (8-16); BILIRUBIN - TOTAL 0.65 mg/dL (0.2-1.3); CALCIUM 8.1 mg/dL (8.5-10.1); CARBON DIOXIDE 30.9 mmol/L (21.0-32.0); MAGNESIUM - SERUM 1.6 mg/dL (1.8-2.4); POTASSIUM - SERUM 4.1 mmol/L (3.5-5.1); PROTEIN - SERUM 7.2 g/dL (6.4-8.2)
[2019-07-23 13:41] LABS: APTT 26.2 SECONDS (22.8-39.4); INR 1.08 (0.85-1.17); PROTIME 13.5 SECONDS (11.6-15.0)
[2019-07-23 13:42] LABS: D-DIMER-QUANTITATIVE 0.53 ug/mLFEU (0.20-0.54)
[2019-07-23 13:45] LABS: CKMB 0.2 U/L (0.0-3.6); CREATINE KINASE 29 UL (21-215); TROPONIN-I < 0.017 ng/mL (0.000-0.060)
[2019-07-23 14:10] VITALS: BP 121/78
--- NOTE | 2019-07-23 15:44 | NUR ---
20 GAUGE IV REMOVED FROM LEFT UPPER ARM. CATHETER TIP INTACT. PATIENT TOLERATED IV REMOVAL WELL. NO BLEEDING FROM SITE. 2X2 GAUZE APPLIED AND SECURED WITH BANDAID. PATIENT BEING DISCHARGED TO HOME. NO DISTRESS. PATIENT IS WAITING ON FAMILY. DISCHARGE INSTRUCTIONS PROVIDED TO PATIENT AT THIS TIME. PATIENT VERBALIZED UNDERSTANDING OF ALL INSTRUCTIONS PROVIDED.
--- NOTE | 2019-07-23 16:23 | NUR ---
MEDICATED FOR SEVERE HEADACHE. PATIENT FAMILY HERE AND READY TO TAKE HER HOME.
--- NOTE | 2019-07-23 17:31 | NUR ---
PATIENT LEFT UNIT VIA WHEELCHAIR. PATIENT DISCHARGED TO HOME WITH HER FAMILY. PATIENT STATES HER IS NOW IN THE ED AND SHE IS GOING OVER TO THE ED NOW TO CHECK ON HIM. PATIENT DISCHARGED WITH ALL PERSONAL BELONGINGS. NO DISTRESS UPON LEAVING UNIT.
--- NOTE | 2019-07-27 14:07 | CN ---
PATIENT NAME:JAYSON FLORES MEDICAL RECORD: [id number] : [birth year] LOCATION:D. D.2121 ADMIT DATE: 07/23/19 ACCOUNT: [id number] CONSULTING PHYSICIAN: GENI MCKNIGHT MD REFERRING PHYSICIAN: ÁNGEL FELIPE DO DATE OF CONSULTATION: 07/23/2019 CARDIOLOGY CONSULTATION ADMITTING DIAGNOSES: 1. Chest pain. 2. Smoking - tobacco use. 3. Chronic obstructive pulmonary disease. 4. Hypertension. 5. Noninsulin dependent diabetes. HISTORY OF PRESENT ILLNESS: Mrs. Flores presents with chest pain, very atypical for angina, it is a sharp pain, worse with inspiration, worse with positional change of her left side. The pain really goes all the way down her left thigh, down her left arm with tingling of the left arm. It is a sharp stabbing pain, centered around the left shoulder area. She denies any physical exertion that would have caused musculoskeletal pain to start the pain. She does have significant pain history and multiple areas of chronic pain for which she is chronically on Soma, Xanax, Celexa, Neurontin, Bee. PHYSICAL EXAMINATION: CONSTITUTIONAL/GENERAL APPEARANCE: Well nourished, well developed, appears stated age. EYES: Lids and conjunctivae noninjected. No discharge. No pallor. ENT: Lips within normal limit. No cyanosis. No pallor. NECK: Carotid arteries, bilateral normal upstroke. No bruits. No thrills. No jugular venous pressure or distention. CERVICAL LYMPH NODES: Nontender. Nonenlarged. THYROID: Not enlarged. No nodules. CARDIOVASCULAR: Precordial exam, nondisplaced. No heaves or pericardial thrills. Rate and rhythm, regular. Heart sounds, normal S1, normal S2. No S3, no gallop, no rub. Systolic murmur, not heard. Diastolic murmur, not heard. RESPIRATORY: Respiratory effort, unlabored. Normal curvature. No thoracic deformity. No chest wall tenderness. Percussion, resonant. Auscultation, clear. No wheezes, no rales, no rhonchi. ABDOMEN: Soft, nondistended, nontender. No abdominal pain, no vomiting and normal appetite. MUSCULOSKELETAL: No joint tenderness, normal gait, normal tone. SKIN: Warm and dry. OVERALL IMPRESSION: Chest pain, musculoskeletal in nature. This is not cardiac in nature. Troponin is normal. EKG is with no changes. No other cardiac workup or treatment is necessary. TRANSINT:[id number] Voice Confirmation ID: [id number] DOCUMENT ID: [id number] CONSULT REPORT [id number] JAYSON FLORES JEFFREY MD at 1407 CC: [id number] DICTATION DATE: 07/23/19 0850 FIREWALL ENGINEER: 07/23/19 0908 DIS IN 07/23/19 [place] [id number]
--- NOTE | 2019-07-27 14:07 | EC ---
PATIENT:JAYSON FLORES DATE OF SERVICE: 07/23/19 SEX: F MEDICAL RECORD: [id number] DATE OF : [birth year] LOCATION:D. D.212 AGE OF PATIENT: 38 ADMISSION DATE: 07/23/19 REFERRING PHYSICIAN: INTERPRETING PHYSICIAN: GENI LAMB MD ECHOCARDIOGRAM REPORT ECHO CHARGES 5 ECHO LIMITED Date: 07/23/19 CLINICAL DIAGNOSIS: DYSPNEA ECHOCARDIOGRAPHIC MEASUREMENTS (adult normal given) AC root (d.<3.7cm) cm LV Septum d (<1.2 cm> 1.1 cm Valve Excursion cm LV Septum (systole) 1.7 cm Left Atria (s.<4.0cm> 3.2 cm LVPW d(<1.2cm) 1.5 cm RV (d.<2.3cm) 2.9 cm LVPW (sytole) 1.8 cm LV diastole(<5.6CM) 3.7 cm MV E-F(>70mm/sec) cm LV systole 2.2 cm LVOT Diameter cm MV exc.(>10mm) cm Est.ejection fraction (50-75%) % DOPPLER: LVIT cm/sec A cm/sec E cm/sec LA cm/sec RVSP 17 mmHg LVOT cm/sec AOP1/2T m/s Asc. Ao cm/sec RVOT cm/sec RA cm/sec PA cm/sec AV Gradient Peak mmHg AV Mean mmHg AV Area cm MV Gradient Peak mmHg MV Mean mmHg MV Area cm COMMENTS: Production Painter: Marisela STEIN Director Banking: Isaura Lamb TAPE# PACS Pericardial Effusion N DATE OF SERVICE: 07/23/2019 FINDINGS: 1. Left ventricular chamber size is within normal limits. Left ventricular systolic function is normal. Overall ejection fraction estimated 65%-70%. 2. Left atrium, right atrium, and right ventricle chamber sizes are within normal limits. 3. Valvular structures have normal structure and motion. 4. Doppler interrogation reveals only trace tricuspid regurgitation, no other valvular insufficiency or stenosis. Pulmonary systolic pressure is estimated at ECHOCARDIOGRAM REPORT [id number] JAYSON FLORES 17 mmHg. 5. No evidence of pericardial effusion or left ventricular thrombus. TRANSINT:[id number] Voice Confirmation ID: [id number] DOCUMENT ID: [id number] GENI LAMB MD at 1407 CC: [id number] DICTATION DATE: 07/23/19 175 MEDICARE INTERVIEWER: 07/23/192114 DIS IN 07/23/19 [place] [id number] [facility] [place] [address]
== END 2019-07-23 17:32 | disposition home or self-care (01) ==
LOC: D.ER 00:23 → D.M2 00:38 → OBSVTIME 00:38 → D.M2 00:38
PROVIDERS: Family Medicine; ADMIT Family Medicine; ATTEND Family Medicine
DX: I20.0 Unstable angina (principal); D86.9 Sarcoidosis, unspecified; F17.203 Nicotine dependence unspecified, with withdrawal; J44.9 Chronic obstructive pulmonary disease, unspecified; E11.65 Type 2 diabetes mellitus with hyperglycemia; I10 Essential (primary) hypertension; G89.29 Other chronic pain

== ENCOUNTER → 2019-10-19 10:55 | Outpatient (CLI) | payer MEDICAID ==
[2019-07-23 08:49] VITALS: BMI 46.5
[~2019-10-19 10:55] MED LIST changes: +BUTALB-APAP-CA1 EACH PO; +IBUPROFEN800 MG PO; +SOMA350 MG PO; +VITAMIN D31000 UNIT PO
== END | disposition home or self-care (01) ==
LOC: D.RT 10:55
PROVIDERS: ATTEND Internal Medicine Pulmonary Disease
DX: D86.0 Sarcoidosis of lung (principal)

== ENCOUNTER 2019-12-20 11:32 | Inpatient (IN) | payer MEDICAID ==
[~2019-12-20] VITALS: Ht 160 cm; Wt 84.8 kg
--- NOTE | 2019-12-20 11:45 | NUR ---
RECEIVED TO ROOM [address] DUM[address]'S OFFICE. A/O X3. NO C/O AT THIS TIME. SARCOIDIOSIS AND EXEZEMA PLAQUES NOTED TO ENTIRE BODY. MOST ARE SCABBED OR SCARRED AT THIS TIME. NO ACTIVE LESIONS NOTED. DENIES NEEDS.
[2019-12-20 11:56] VITALS: BP 170/97; BMI 33.2
[2019-12-20 12:01] LABS: BASOPHILS 0.3 % (0-2); EOSINOPHILS 4.3 % (0-7); HEMATOCRIT 38.5 % (36.0-48.0); HEMOGLOBIN 11.6 g/dL (12-16); IMMATURE GRANULOCYTES 0.1 % (0-5); LYMPHOCYTES 20.7 % (15-50); MCHC 30.1 g/dL (31.0-37.0); MCV 79.5 fL (80.0-100.0); MEAN PLATELET VOLUME 8.7 fL (7.4-10.4); MONOCYTES 7.2 % (2-11); NEUTROPHILS 67.4 % (40-80); PLATELET COUNT 321 10x3/uL (130-400); RBC 4.84 10x6/uL (4.00-5.40); RDW 18.1 % (11.5-14.5); WBC 7.7 10x3/uL (4.8-10.8)
[2019-12-20 12:22] LABS: ALBUMIN 3.4 g/dL (3.4-5.0); ALKALINE PHOSPHATASE 129 U/L (30-120); ALT (SGPT) 25 U/L (10-68); BILIRUBIN - TOTAL 0.45 mg/dL (0.2-1.3); CALC OSMOLALITY 275 mosm/kg (275-300); CALCIUM 8.4 mg/dL (8.5-10.1); CARBON DIOXIDE 26.8 mmol/L (21.0-32.0); CHLORIDE - SERUM 100 mmol/L (98-107); CREATININE - SERUM 0.8 mg/dL (0.6-1.3); GLUCOSE 103 mg/dL (74-106); POTASSIUM - SERUM 3.4 mmol/L (3.5-5.1); PROTEIN - SERUM 7.7 g/dL (6.4-8.2); SODIUM 140 mmol/L (136-145); UREA NITROGEN 4 mg/dL (7-18); eGFR NON AFRICAN AMERICAN 84 mL/min (90-120)
[2019-12-20 13:59] LABS: APTT 27.6 SECONDS (22.8-39.4); INR 0.99 (0.85-1.17); PROTIME 13.1 SECONDS (11.6-15.0)
--- NOTE | 2019-12-20 15:30 | NUR ---
IV SITED TO LEFT FOREARM AFTER ONE ATTEMPT WITH 20 GA. PATIENT TOLERATED WELL. ATE ALL OF SANDWICH TRAY SERVED IN ROOM. DENIES NEEDS.
--- NOTE | 2019-12-20 18:00 | NUR ---
ATE ALL OF SUPPER. DENIES NEEDS. NO CHANGES NOTED. REPORTED VOIDED WITHOUT DIFFICULTY.
[2019-12-20 23:49] VITALS: BP 136/80
[2019-12-21] VITALS (10 sets, daily range): BP systolic 132–170; BP diastolic 63–94; Ht 160 cm; Wt 84.8 kg
[2019-12-21 05:10] LABS: BASOPHILS 0.1 % (0-2); EOSINOPHILS 0 % (0-7); HEMOGLOBIN 11.3 g/dL (12-16); IMMATURE GRANULOCYTES 0.2 % (0-5); LYMPHOCYTES 10.9 % (15-50); MCH 23.3 pg (26.0-34.0); MCHC 29.7 g/dL (31.0-37.0); MCV 78.5 fL (80.0-100.0); MEAN PLATELET VOLUME 9.1 fL (7.4-10.4); MONOCYTES 2.8 % (2-11); PLATELET COUNT 376 10x3/uL (130-400); RBC 4.84 10x6/uL (4.00-5.40); RDW 17.8 % (11.5-14.5); WBC 8.5 10x3/uL (4.8-10.8)
[2019-12-21 05:40] LABS: ALBUMIN 3.3 g/dL (3.4-5.0); ANION GAP 15.3 mmol/L (8-16); BILIRUBIN - TOTAL 0.22 mg/dL (0.2-1.3); CALCIUM 8.8 mg/dL (8.5-10.1); CARBON DIOXIDE 24.6 mmol/L (21.0-32.0); CREATININE - SERUM 0.9 mg/dL (0.6-1.3); POTASSIUM - SERUM 3.9 mmol/L (3.5-5.1); PROTEIN - SERUM 7.8 g/dL (6.4-8.2)
--- NOTE | 2019-12-21 07:10 | NUR ---
PT IS RESTING IN BED WITH EYES CLOSED. RESPIRATIONS ARE EVEN AND UNLABORED. PT IS EASILY AROUSED WITH VERBAL STIMULATION. PT IS AAOX 4 UPON AROUSAL. PT DENIES PRESENCE OF N/V/DYSPNEA AT THIS TIME. BED IS IN THE LOWEST POSITION. CALL LIGHT AND BEDSIDE TABLE ARE WITHIN REACH. SIDE RAILS X 2. PT DENIES FURTHER NEEDS. WILL CONT TO MONITOR.
[2019-12-21 08:37] LABS: HCG URINE NEGATIVE (NEGATIVE)
--- NOTE | 2019-12-21 11:00 | NUR ---
PT TRANSPORTED FROM ROOM VIA BED FOR PROCEDURE.
--- NOTE | 2019-12-21 11:56 | NUR ---
PT RETURNS TO ROOM VIA BED ESCORTED BY HOSPITAL STAFF. PT IS AAOX 4 UPON ARRIVAL AND DENIES PRESENCE OF PAIN/N/V/DYSPNEA/SOB AT THIS TIME. PT INFORMED OF NPO STATE FOR 1 HOUR. PT EDUCATED ON FALL PRECAUTIONS AND TO USE CALL LIGHT FOR ASSISTANCE. PT VERBALIZES UNDERSTANDING. BED IS IN THE LOWEST POSITION. CALL LIGHT AND BEDSIDE TABLE ARE WITIHN REACH. SIDE RAILS X 2. HOB AT 30 DEGREES. PT DENIES FURTHER NEEDS. WILL CONT TO MONITOR.
--- NOTE | 2019-12-21 13:50 | NUR ---
PT IS AAO X 4 AND REQUESTS WATER TO DRINK. WATER GIVEN. NO S/S OF CHOKING/ASPIRATION NOTED. PT STATES THAT SHE WOULD LIKE A FOOD TRAY. WILL PLACE ORDERS. PT DENIES PRENCE OF PAIN/N/V/DYSPNEA AT THIS TIME. BED IS IN THE LOWEST POSITION. CALL LIGHT AND BEDSIDE TABLE ARE WITHIN REACH. SIDE RAILS X 2. PT DENIES FURTHER NEEDS. WILL CONT TO MONITOR.
[2019-12-21 14:18] LABS: MACROPHAGES BF 34 %; NEUT - BF 50 %
--- NOTE | 2019-12-21 19:51 | MORECARE ---
CASE MANAGEMENT DISCHARGE SUMMARY PATIENT: JAYSON FLORES UNIT: [id number] ADM DATE: 12/20/19 AGE: 39 : [birth year] SEX: F ROOM/BED: D.2202 AUTHOR: CAROLE GRAY PHYSICIAN: REFERRING PHYSICIAN: KAITLIN PERKINS MD DATE OF SERVICE: 12/21/19 Discharge Plan Patient Name: JAYSON FLORES Facility: [facility]:[place] : 1980 Planned Disposition: Home Anticipated Discharge Date: Discharge Date: Expected LOS: Initial Reviewer: [email or web address] Initial Review Date: 12/20/2019 Generated: 12/21/19 8:51 pm Patient Name: JAYSON FLORES Page [phone] at 1950 All edits/amendments must be made on the electronic document DICTATION DATE: 12/21/191950 CART PUSHER: YANET 12/21/191950 RPT#: [id number] DC DATE: STATUS: ADM IN [facility] [address] [place] [address] END OF REPORT
--- NOTE | 2019-12-21 19:58 | MORECARE ---
CASE MANAGEMENT DISCHARGE SUMMARY PATIENT: JAYSON FLORES UNIT: [id number] ADM DATE: 12/20/19 AGE: 39 : [birth year] SEX: F ROOM/BED: D.2202 AUTHOR: MARINA,DOC PHYSICIAN: REFERRING PHYSICIAN: KAITLIN PERKINS MD DATE OF SERVICE: 12/21/19 Discharge Plan Patient Name: JAYSON FLORES Facility: [facility]:[place] : 1980 Planned Disposition: Home Anticipated Discharge Date: Discharge Date: Expected LOS: Initial Reviewer: [email or web address] Initial Review Date: 12/20/2019 Generated: 12/21/19 8:57 pm Comments DCP- Discharge Planning Updated by [email or web address]: Amnada Garcia on 12/21/19 6:[address] Patient Name: JAYSON FLORES Admission Status: Urgent Accout number: [id number] Admission Date: 12-20-2019 : 1980 Admission Diagnosis:ACUTE AND CHRONIC RESPIRATORY FAILURE WITH HYPOXIA Attending: SHERINE Current LOS: 1 Anticipated DC Date: Planned Disposition: Home Primary Insurance: MEDICAID [place] Discharge Planning Comments: CM met with patient to complete initial dc planning assessment. CM educated patient on the CM role and verbal consent given by patient to complete assessment. Patient lives at home with mother and children. At discharge patient plans to return home and feels this is a safe discharge. CM discussed availability of home health, rehab services, and medical equipment. Patient denied known discharge needs at this time. CM will continue to follow and will assist as needed with dc plans/needs. Gas Plumber: Amanda Garcia DCPIA - Discharge Planning Initial Assessment Updated by [email or web address]: Amanda Garcia on 12/21/19 7:51 pm * Is the patient Alert and Oriented? Yes * How many steps to enter\exit or inside your home? * PCP RAJAT NAYLOR * [facility]acy [facility] * Preadmission Environment Home with Family * ADLs Independent * Equipment Nebulizer * List name and contact numbers for known caregivers / representatives who currently or will assist patient after discharge: ROSHAN FLORES - DAUGHTER - [phone] DARNELL DIMAS- SISTER- [phone] * Verbal permission to speak to the caregivers and representatives has been obtained from the patient. Yes * Community resources currently utilized None * Additional services required to return to the preadmission environment? No * Can the patient safely return to the preadmission environment? Yes * Has this patient been hospitalized within the prior 30 days at any hospital? No Last DP export: 12/21/19 6:51 pm Patient Name: JAYSON FLORES Page [id number] at 1960 All edits/amendments must be made on the electronic document DICTATION DATE: 12/21/191956 RELAY CHECKER: YANET 12/21/191956 RPT#: [id number] DC DATE: STATUS: ADM IN [facility] [address] [place] [address] END OF REPORT
--- NOTE | 2019-12-21 21:13 | NUR ---
RESTING IN BED WITH NO NEEDS AT THIS TIME. ALERT AND ORENTED ABLE TO VOICE NEEDS AND WANTS TO STAFF. IV TO LEFT FA. FSBS PER ORDERS . CONTIUE TO REFUSE SCD'S AT THIS TIME.
[2019-12-22 00:04] VITALS: BP 165/87
[2019-12-22 04:15] VITALS: BP 165/87
[2019-12-22 04:22] LABS: BASOPHILS 0.2 % (0-2); EOSINOPHILS 0.1 % (0-7); HEMATOCRIT 35.8 % (36.0-48.0); HEMOGLOBIN 10.7 g/dL (12-16); IMMATURE GRANULOCYTES 0.2 % (0-5); LYMPHOCYTES 13.2 % (15-50); MCH 23.6 pg (26.0-34.0); MCHC 29.9 g/dL (31.0-37.0); MCV 78.9 fL (80.0-100.0); MONOCYTES 5.9 % (2-11); NEUTROPHILS 80.4 % (40-80); PLATELET COUNT 334 10x3/uL (130-400); RBC 4.54 10x6/uL (4.00-5.40)
[2019-12-22 04:52] LABS: ALBUMIN 2.9 g/dL (3.4-5.0); ALKALINE PHOSPHATASE 103 U/L (30-120); ALT (SGPT) 22 U/L (10-68); BILIRUBIN - TOTAL 0.25 mg/dL (0.2-1.3); CALC OSMOLALITY 271 mosm/kg (275-300); CALCIUM 8.6 mg/dL (8.5-10.1); CARBON DIOXIDE 26.3 mmol/L (21.0-32.0); CHLORIDE - SERUM 101 mmol/L (98-107); CREATININE - SERUM 0.8 mg/dL (0.6-1.3); GLUCOSE 107 mg/dL (74-106); POTASSIUM - SERUM 3.6 mmol/L (3.5-5.1); PROTEIN - SERUM 7.7 g/dL (6.4-8.2); SODIUM 137 mmol/L (136-145); eGFR NON AFRICAN AMERICAN 84 mL/min (90-120)
[2019-12-22 04:59] LABS: WBC 10.9 10x3/uL (4.8-10.8)
[2019-12-22 05:08] LABS: UREA NITROGEN 6 mg/dL (7-18)
--- NOTE | 2019-12-22 07:50 | NUR ---
PT RESTING IN BED. RESP EVEN AND UNLABORED. PT REPORTS PAIN 8/10 AND REQUEST PAIN MEDICATION WITH AM MEDICATIONS. SALINE LOC TO LEFT FOREARM, SITE WITHOUT REDNESS OR EDEMA. EASILY FLUSHED. PT DENIES FURTHER NEEDS AT THIS TIME. CL WITHIN REACH. ENCOURAGED TO CALL WITH NEEDS. CONTINUE POC
[2019-12-22 08:31] VITALS: BP 154/83
[2019-12-22 11:32] VITALS: BP 147/95
--- NOTE | 2019-12-22 14:55 | NUR ---
PT AMBULATING IN HALLWAY. PT MADE THREE CIRCLES AROUND NURSES STATION, TOLERATING WELL.
[2019-12-22 15:09] LABS: ACID FAST SMEAR Negative (()); AFB SPECIMEN PROCESSING Concentration (())
[2019-12-22 16:02] VITALS: BP 154/83
[2019-12-22 20:00] VITALS: BP 158/71
--- NOTE | 2019-12-22 20:00 | NUR ---
PATIENT RESTING IN BED WATCHING TV. NO S/S OF DISTRESS. NO C/O AT THIS TIME. PATIENT HAS LEFT FOREARM IV SALINE LOC. IV IS PATENT WITHOUT REDNESS, SWELLING, OR TENDERNESS. PATIENT HAS PSORIASIS PATCHES ALL OVER ARMS. PATIENT STATES, "THE LOTION YOU GUYS HAVE, HAVE REALLY BEEN HELPING." PATIENT HAD BRONCH YESTERDAY. PATIENT IS UP ADLIB. PATIENT REFUSED SCDS. CALL LIGHT IN PLACE WILL CONTINUE TO MONITOR.
[2019-12-23] VITALS: BP 156/84
[2019-12-23 04:00] VITALS: BP 179/99
[2019-12-23 04:25] LABS: BASOPHILS 0 % (0-2); EOSINOPHILS 0 % (0-7); HEMATOCRIT 36.4 % (36.0-48.0); HEMOGLOBIN 10.9 g/dL (12-16); IMMATURE GRANULOCYTES 0.3 % (0-5); LYMPHOCYTES 8.8 % (15-50); MCH 23.4 pg (26.0-34.0); MCHC 29.9 g/dL (31.0-37.0); MCV 78.3 fL (80.0-100.0); MEAN PLATELET VOLUME 8.9 fL (7.4-10.4); MONOCYTES 1.5 % (2-11); NEUTROPHILS 89.4 % (40-80); PLATELET COUNT 373 10x3/uL (130-400); RBC 4.65 10x6/uL (4.00-5.40); RDW 18.2 % (11.5-14.5); WBC 10.9 10x3/uL (4.8-10.8)
[2019-12-23 04:48] LABS: ALBUMIN 3.2 g/dL (3.4-5.0); ANION GAP 12.9 mmol/L (8-16); BILIRUBIN - TOTAL 0.18 mg/dL (0.2-1.3); CALCIUM 8.9 mg/dL (8.5-10.1); CARBON DIOXIDE 27.1 mmol/L (21.0-32.0); PROTEIN - SERUM 8.2 g/dL (6.4-8.2)
[2019-12-23 07:05] VITALS: BP 147/97
--- NOTE | 2019-12-23 07:05 | NUR ---
PT IS RESTING IN BED WITH EYES CLOSED. RESPIRATIONS ARE EVEN AND UNLABORED. PT IS EASILY AROUSED WITH VERBAL STIMULATION. PT DENIES PRESENCE OF PAIN/N/V/DYSPNEA AT THIS TIME. PT IS AAO X 4 UPON AROUSAL. BED IS IN THE LOWEST POSITION. CALL LIGHT AND BEDSIDE TABLE ARE WITHIN REACH. SIDE RAILS X 2. PT DENIES FURTHER NEEDS. WILL CONT TO MONITOR.
[2019-12-23 08:00] VITALS: BP 147/97
[2019-12-23 10:08] LABS: FUNGUS STAIN Final report (())
[2019-12-23 10:39] VITALS: BP 152/93
--- NOTE | 2019-12-23 13:04 | NUR ---
Nutrition Follow-up: Eating well. 100% of breakfast this AM. Diet: Diabetic PO intake: 100% x 6 meals No new wt; last wt: 187# (12/20) Labs noted: Glu 132, Alb 3.2 Meds noted: HCTZ, Colace, vitamin D, Humalog, Protonix -May consider low Na diabetic diet 2/2 HTN. -Monitor wt; noted daily wts ordered. -RD following.
[2019-12-23] MEDS ORDERED: VIBRAMYCIN 100100 MG PO (14:47)
[2019-12-23] MEDS ORDERED: BACTRIM DS PO (14:47)
[2019-12-23] MEDS ORDERED: DIFLUCAN100 MG PO (14:47)
[2019-12-23] MEDS ORDERED: CATAPRES0.1 MG PO (14:48)
[2019-12-23] MEDS ORDERED: PROTONIX40 MG PO (14:48)
[2019-12-23] MEDS ORDERED: FLORAJEN3 CAPS460 MG PO (14:48)
--- NOTE | 2019-12-23 15:11 | NUR ---
DR MORSE ON FLOOR. OK FOR DISCHARGE FOR HIS STANDPOINT. CARDIOLOGY PAGED. DR GUSMAN RETURNS PAGE AND STATES OK FOR DISCHARGE FROM CARDIOLOGY STAND POINT. WILL NEED CARDIOLOGY F/UP IN CLINIC OUTPATIENT.
--- NOTE | 2019-12-23 16:41 | NUR ---
ALL DISCHARGE INSTRUCTIONS COVERED. ALL QUESTIONS ANSWERED. PT DENIES FURTHER QUESTIONS/NEEDS/CONCERNS AT THIS TIME. PIV TO LEFT FA REMOVED WITH CATHETER TIP INTACT DRESSING APPLIED. PT TO NOTIFY NURSE WHEN TRANSPORTATION ARRIVES. ALL DISCHARGE PAPERS SIGNED. AND SIGNED DISCHARGE PAPERS PLACED IN PT CHART.
--- NOTE | 2019-12-23 18:00 | NUR ---
PT TRANSPORTED FROM ROOM VIA WHEELCHAIR. TP DENIES FURTHER NEEDS/CONCERNS AT THIS TIME. PT THANKS THIS NURSE FOR CARE GIVEN DURING THIS SHIFT AND DENIES FURTHER QUESTIONS. PT REPORTS THAT SHE HAS ALL PERSONAL BELONGINGS.
--- NOTE | 2019-12-23 18:15 | MORECARE ---
CASE MANAGEMENT DISCHARGE SUMMARY PATIENT: JAYSON FLORES UNIT: [id number] ADM DATE: 12/20/19 AGE: 39 : [birth year] SEX: F ROOM/BED: D.2202 AUTHOR: MARINA,DOC PHYSICIAN: REFERRING PHYSICIAN: KAITLIN PERKINS MD DATE OF SERVICE: 12/23/19 Discharge Plan Patient Name: JAYSON FLORES Facility: [facility]:[place] : 1980 Planned Disposition: Home Anticipated Discharge Date: Discharge Date: 12/23/2019 Expected LOS: Initial Reviewer: [email or web address] Initial Review Date: 12/20/2019 Generated: 12/23/19 7:14 pm Comments DCP- Discharge Planning Updated by [email or web address]: Amanda Garcia on 12/21/19 6:[address] Patient Name: JAYSON FLORES Admission Status: Urgent Accout number: [id number] Admission Date: 12-20-2019 : 1980 Admission Diagnosis:ACUTE AND CHRONIC RESPIRATORY FAILURE WITH HYPOXIA Attending: SHERINE Current LOS: 1 Anticipated DC Date: Planned Disposition: Home Primary Insurance: MEDICAID [place] Discharge Planning Comments: CM met with patient to complete initial dc planning assessment. CM educated patient on the CM role and verbal consent given by patient to complete assessment. Patient lives at home with mother and children. At discharge patient plans to return home and feels this is a safe discharge. CM discussed availability of home health, rehab services, and medical equipment. Patient denied known discharge needs at this time. CM will continue to follow and will assist as needed with dc plans/needs. Body Mechanic: Amanda Garcia DCPIA - Discharge Planning Initial Assessment Updated by [email or web address]: Amanda Garcia on 12/21/19 7:51 pm * Is the patient Alert and Oriented? Yes * How many steps to enter\exit or inside your home? * PCP RAJAT NAYLOR * [facility] * Preadmission Environment Home with Family * ADLs Independent * Equipment Nebulizer * List name and contact numbers for known caregivers / representatives who currently or will assist patient after discharge: ROSHAN FLORES - DAUGHTER - [phone] DARNELL DIMAS- SISTER- [phone] * Verbal permission to speak to the caregivers and representatives has been obtained from the patient. Yes * Community resources currently utilized None * Additional services required to return to the preadmission environment? No * Can the patient safely return to the preadmission environment? Yes * Has this patient been hospitalized within the prior 30 days at any hospital? No Last DP export: 12/21/19 6:58 pm Patient Name: JAYSON FLORES Page [id number] at 1815 All edits/amendments must be made on the electronic document DICTATION DATE: 12/23/191813 ELECTRICAL DESIGN ENGINEER: YANET 12/23/191813 RPT#: [id number] DC DATE:12/23/19 STATUS: DIS IN [facility] [address] [place] [address] END OF REPORT
--- NOTE | 2019-12-26 14:03 | CN ---
PATIENT NAME:JAYSON FLORES MEDICAL RECORD: [id number] : [birth year] LOCATION:D.MS [id number] ADMIT DATE: 12/20/19 ACCOUNT: [id number] CONSULTING PHYSICIAN: JACKIE KILGORE MD REFERRING PHYSICIAN: KAITLIN PERKINS MD DATE OF CONSULTATION: 12/23/2019 HISTORY OF PRESENT ILLNESS: A 39-year-old female with a history of sarcoidosis approximately 1 year ago, has been on chronic steroids since that time, probably high dose, currently on 40 mg prednisone a day. She has a history of reactive airway disease as well. I noticed past month or so increasing lower extremity edema, dyspnea on exertion to the point of having difficulty with his ADLs. No isrrael orthopnea, PND. Had a negative sleep study last summer, bronchoscopy yesterday via Dr. Ragland, reports some improvement since transfer here from [place]. We are asked to see her concerning her cardiovascular status. PAST MEDICAL HISTORY: Includes; 1. History of sarcoidosis. 2. Hypertension. 3. Diabetes mellitus. 4. Psoriatic arthritis. 5. Reactive airway disease. MEDICATIONS: Typically include prednisone 40 mg p.o. daily, [place] 7.5/325 one every 6 hours p.r.n., prednisone 40 daily, metformin 500 mg b.i.d., montelukast 10 at bedtime, Fioricet 50/325/40 one every 6 hours p.r.n., Restoril 30 mg p.o. at bedtime p.r.n., Neurontin 800 p.o. b.i.d., Celexa 40 mg p.o. daily, Xanax 1 mg b.i.d., metoprolol 100 mg p.o. b.i.d. ALLERGIES: TRAMADOL, MELOXICAM, STRAWBERRY, MUSHROOM. SOCIAL HISTORY: Lives in [place]. She is nonsmoker, nondrinker up to recent, was able to take care of all his ADLs. No set exercise program. REVIEW OF SYSTEMS: The patient reports easy bruising but reports no swollen glands. The patient reports no fever, no night sweats, no significant weight gain, no significant weight loss. No significant exercise tolerance. The patient reports no dry eyes, no irritation, no vision change. Patient reports no difficulty hearing and no ear pain. Patient reports no frequent nose bleeds or nose and sinus problems. Patient reports on arm pain on exertion. No shortness of breath while lying down. No history of heart murmur. Patient reports no cough, no wheezing or coughing up blood. Patient reports no abdominal pain, no vomiting. Normal appetite. No diarrhea and not vomiting blood. No nausea and no constipation. Patient reports no incontinence. No difficulty urinating. No hematuria. No increased frequency. Patient reports no muscle aches. No weakness, no arthralgias, no back pain. No swelling of the extremities. Patient reports no abnormal mole, no jaundice, no rashes. Reports no loss of consciousness. No weakness and no numbness. No seizures, dizziness, or headaches. The patient reports no depression, no sleep disturbance, feeling safe in a relationship and no alcohol abuse. Patient reports on fatigue. Reports no runny nose or sinus pressure. No itching, no hives, and no frequent sneezing. Had 100 pound weight gain in the last year, started on prednisone therapy. CONSULT REPORT [id number] JAYSON FLORES PHYSICAL EXAMINATION: GENERAL: Pleasant female, no acute distress, appears stated age. VITAL SIGNS: Blood pressure 147/97, pulse 83 and regular. HEENT: Normocephalic, atraumatic. NECK: No bruits noted. HEART: Regular. Possible S4 gallop is noted. LUNGS: Good air excursion. Decreased breath sounds in the bases however. ABDOMEN: Soft, nontender. EXTREMITIES: 2+ pulses, 1+ edema. IMPRESSION: Dyspnea. PLAN: We will check echocardiographic study. If current workup is unfruitful, could consider outpatient nuclear stress testing. Given still mildly hypertensive and lower extremity edema, we would add hydrochlorothiazide to her underlying medical regime. Further recommendations based on clinical course. TRANSINT:[id number] Voice Confirmation ID: [id number] DOCUMENT ID: [id number] JACKIE KILGORE MD at 1403 CC: [id number] DICTATION DATE: 12/23/19941 DRIER TAKE OFF TENDER: 12/23/19 1645 DIS IN 12/23/19 [address] [place] [address]
== END 2019-12-23 18:05 | disposition home or self-care (01) | DRG 196 ==
LOC: D.MS 11:32
PROVIDERS: Anesthesiology; Internal Medicine Pulmonary Disease; ADMIT Family Medicine; ATTEND Family Medicine
PROC: 0B9H8ZX Drainage of Lung Lingula, Via Natural or Artificial Opening Endoscopic, Diagnostic (ICD-10-PCS; principal; 2019-12-21)
PROC: 0B9M8ZX Drainage of Bilateral Lungs, Via Natural or Artificial Opening Endoscopic, Diagnostic (ICD-10-PCS; 2019-12-21)
DX: D86.0 Sarcoidosis of lung (principal); J18.9 Pneumonia, unspecified organism; J98.11 Atelectasis; J47.0 Bronchiectasis with acute lower respiratory infection; Z68.33 Body mass index [BMI] 33.0-33.9, adult; E11.65 Type 2 diabetes mellitus with hyperglycemia; G47.33 Obstructive sleep apnea (adult) (pediatric); D50.9 Iron deficiency anemia, unspecified; E87.6 Hypokalemia; E11.40 Type 2 diabetes mellitus with diabetic neuropathy, unspecified; M54.9 Dorsalgia, unspecified; G47.00 Insomnia, unspecified; F41.8 Other specified anxiety disorders; E66.9 Obesity, unspecified; L40.9 Psoriasis, unspecified; L98.9 Disorder of the skin and subcutaneous tissue, unspecified

== ENCOUNTER → 2020-02-06 12:11 | Outpatient (CLI) | payer MEDICAID ==
[2019-12-21 13:52] VITALS: BMI 33.1
[~2020-02-06 12:11] MED LIST changes: +BACTRIM DS PO; +CATAPRES0.1 MG PO; +FLORAJEN3 CAPS460 MG PO; +PROTONIX40 MG PO; +VIBRAMYCIN 100100 MG PO
== END | disposition home or self-care (01) ==
LOC: D.HCCARDIO 12:11
PROVIDERS: ATTEND Internal Medicine Cardiovascular Disease
DX: I20.9 Angina pectoris, unspecified (principal)

== ENCOUNTER 2020-02-23 11:23 | Outpatient (CLI) | payer MEDICAID ==
[~2020-02-23] VITALS: Ht 160 cm; Wt 101.4 kg
[2020-02-23] MEDS ORDERED: LASIX40 MG PO (11:54)
[2020-02-23] MEDS ORDERED: BACTRIM 400-801 TAB PO (11:56)
[2020-02-23] MEDS ORDERED: KENALOG 0.1% OI80 GM TOPICAL (11:57)
[2020-02-23] MEDS ORDERED: PREDNISONE20 MG PO (11:57)
[2020-02-23] MEDS ORDERED: LIPITOR40 MG PO (11:59)
[2020-02-23] MEDS ORDERED: SINGULAIR10 MG PO (11:59)
[2020-02-23] MEDS ORDERED: GLUCOPHAGE1000 MG PO (12:00)
[2020-02-23] MEDS ORDERED: HUMALOG 30100 UNITS/ SC (12:02)
[2020-02-23] MEDS ORDERED: XANAX2 MG PO (12:04)
[2020-02-23 12:16] VITALS: BP 152/84; Ht 160 cm; Wt 101.4 kg
== END 2020-02-23 15:35 | disposition home or self-care (01) ==
LOC: D.CATH 11:23
PROVIDERS: ATTEND Internal Medicine Interventional Cardiology
DX: I20.9 Angina pectoris, unspecified (principal); E78.5 Hyperlipidemia, unspecified; R09.89 Other specified symptoms and signs involving the circulatory and respiratory systems; E11.9 Type 2 diabetes mellitus without complications; D86.9 Sarcoidosis, unspecified; Z79.84 Long term (current) use of oral hypoglycemic drugs